=== PATIENT | male | born 1955 | race Caucasian/White ===

== ENCOUNTER 2023-12-12 10:20 | Emergency (ER) | payer MEDICARE, BC, SELFPAY ==
[2023-12-12] VITALS (33 sets, daily range): BP systolic 104–150; BP diastolic 64–107; BMI 27.0
--- NOTE | 2023-12-12 10:25 | ED.GENMED ---
History of Present Illness
General
Chief Complaint: Heart Rate Problem
Source: patient
Exam Limitations: none
Time Seen by Provider: 12/12/23 10:25
Nursing documentation reviewed up to this point in time: agreed with
History of Present Illness
History of Present Illness:
68-year-old male with history of HTN, HLD
Past History
Past History
ED Past Medical History: HTN and Hypercholesterolemia
ED Past Surgical History: None
Social History
Tobacco: Non-smoker
Alcohol: None
Drug: None
Living: with family
ED Attending Note
-
Portions of this chart may have been created with voice recognition software.� Occasional wrong word or��sound alike� substitutions may have occurred due to the inherent limitations of voice recognition software.
Discharge Plan
Departure
Prescriptions:
No Action
diclofenac sodium 75 MG tablet,delayed release (DR/EC)
75 mg PO BID PRN (Reason: pain, take with food) Qty: 30 0RF
gabapentin 300 MG capsule
300 mg PO BID Qty: 30 0RF
Discharge Date and Time
Print Language: UKRAINIAN
[2023-12-12] MEDS: NSS 1000 IV (10:44)
[2023-12-12] MEDS: CARDIZEM 10 MG IV (10:49)
[2023-12-12] MEDS: CARDIZEM 125 IV (10:49)
[2023-12-12 10:54] LABS: % Basophils 0.5 % (0-2); % Eosinophils 1.4 % (0-6); % Immature Granulocytes 0.2 % (0-0.5); % Lymphocytes 27.3 % (20.5-51.1); % Monocytes 7.4 % (1.7-9.3); % Neutrophils 63.2 % (42.2-75.2); Absolute Eosinophils 0.1 10^3/uL (0-0.7); Absolute Lymphocytes 2.3 10^3/uL (1.2-3.4); Absolute Monocytes 0.6 10^3/uL (0.1-0.6); Absolute Neutrophils 5.4 10^3/uL (1.4-6.5); Hemoglobin 17.4 g/dL (13.0-18.0); Mean Corp Hgb Conc. 35.5 g/dL (33.0-37.0); Mean Corpuscular Hgb 28.6 pg (27.0-31.0); Mean Corpuscular Volume 80.5 fL (80.0-94.0); Mean Platelet Volume 10.5 fL (7.4-10.4); Nucleated Red Blood Cells % 0 % (-); Platelet Count 213 10^3/uL (130-400); Red Blood Cell Count 6.09 10^6/uL (4.70-6.10); Red Cell Dist. Width 12.9 % (11.5-14.5); White Blood Cell Count 8.5 10^3/uL (4.8-10.8)
--- NOTE | 2023-12-12 11:15 | ED.GENMED ---
History of Present Illness
General
Chief Complaint: Heart Rate Problem
Source: patient
Exam Limitations: none
Time Seen by Provider: 12/12/23 10:25
Nursing documentation reviewed up to this point in time: agreed with
Travel History
Have you had any contact with someone who has COVID-19?: No
Do you have any symptoms of coronavirus? Fever > 100 degrees, chills, cough, shortness of breath, sore throat, loss of taste or smell, muscle aches, or headache?: No
History of Present Illness
History of Present Illness:
68-year-old male with a past medical history of hypertension, hyperlipidemia, PVCs and PACs who presents to the emergency department from outpatient surgery center where he was scheduled for a colonoscopy�was found to be in A-fib with RVR. Patient
reports that he did his colonoscopy prep and was scheduled for routine colonoscopy this morning and when they were preparing for the procedure he was noted to have heart rate in the 160s and EKG showed new onset of A-fib with RVR. Patient has a
history of PACs and PVCs and has seen cardiology (Dr. Greg Funk) for this issue but has never had A-fib. He does not take blood thinners for any reason. Fortunately he has no significant symptoms�denies palpitations, dizziness, chest pain,
shortness of breath. Unclear exactly when this started.
Past History
Past History
ED Past Medical History: HTN and Hypercholesterolemia
ED Past Surgical History: None
Social History
Tobacco: Non-smoker
Alcohol: None
Drug: None
Living: with family
Review of Systems
Review of Systems
All Other Systems: ROS reviewed and negative except as documented in HPI and ROS
Constitutional: Denies fever
Respiratory: Denies trouble breathing
Cardiac: Denies chest pain, diaphoresis, palpitations or syncope
ABD/GI: Denies abdominal pain, nausea or vomiting
: Denies flank pain
Musculoskeletal: Denies neck pain or back pain
Neurological: Denies dizzy or headache
Phy Exam
Physical Exam
Physical Exam:
General: Awake, alert, oriented x3; somewhat anxious but no acute distress
Head: Normocephalic, atraumatic
Eyes: Conjunctiva normal
Throat: Airway intact, handling secretions
Neck: Trachea midline, supple without meningismus
Lungs: Clear to auscultation bilaterally, no wheezing, rales, rhonchi
Heart: Tachycardia with irregularly irregular rhythm, no murmurs, gallops, or rubs
Abd: Soft, non distended, nontender
Neuro: Cranial nerves grossly intact, speech fluid
Skin: no rash
Extremities: No edema in extremities, equal pulses in all extremities
Scores
[id number] Score for Afib Stroke Risk
Age in Years (65=0, 65-74=1, >/=75=2): 65-74
Sex (Female=+1): Male
Congestive Heart Failure History (Yes=+1): No
Hypertension History (Yes=+1): Yes
Stroke/TIA/Thromboembolism History (Yes=+2): No
Vascular Disease History (Yes=+1): No
Diabetes Mellitus (Yes=+1): No
Score: 2
Anticoagulation Recommendations: Recommend anticoagulation (as validated in nonvalvular fib)
Heart Failure Risk
Heart Failure Risk Score: Not Applicable
Heart Score for Chest Pain Patients
STEMI patient?: Not applicable
Withdrawal Assessment of Alcohol
Withdrawal Assessment Completed?: Not applicable
Course
Orders/Labs/Results
Orders:
Orders
12/12/23 10:36
Electrocardiogram (*1) Urgent
Reason for Study: Bradycardia / Tachycardia
EKG- Treatment ONCE
12/12/23 10:37
0.9% Sodium Chloride 1000 ml [Nss] 1,000 ml IV BOLUS
Diltiazem 125 mg/125 ml Nss [Cardizem] 125 mg in 125 ml IV NOW
Initial dose in mg/hr, then titrate:: 5
Titrate to keep:: Heart rate 80-100 bpm
Titrate by mg/hr:: 5 mg/hr
Frequency of titrations (minutes):: 15
Maximum dose in mg/hr:: 15
Diltiazem HCl [Cardizem] 10 mg IV NOW STA
12/12/23 10:46
Basic Metabolic Panel Urgent
Complete Blood Count/With Diff Urgent
12/12/23 10:58
CARDIOLOGY CONSULT Urgent
Consulting Provider: Kendall Carlton
Was physician already notified: Yes
12/12/23 11:30
Comprehensive Metabolic Panel Urgent
Magnesium Urgent
Abnormal Lab Results
12/12/23
10:46
MPV 10.5 H fL
(7.4-10.4)
Glucose 110 H mg/dl
(70-99)
12/12/23 10:46
Vital Signs
Initial and Last Documented VS:
Initial Vital Signs
Pulse Resp BP Pulse Ox
160 16 138/107 98
12/12/23 10:27 12/12/23 10:27 12/12/23 10:27 12/12/23 10:27
Last Documented Vital Signs
Temp Pulse Resp BP Pulse Ox
37.0 C 98 17 134/83 100
12/12/23 10:45 12/12/23 11:15 12/12/23 11:15 12/12/23 11:15 12/12/23 11:15
MDM/Problems Addressed
Differential Diagnosis Includes:
New onset A-fib
MDM/Problems Addressed:
68-year-old male presents to the emergency room from outpatient surgery [facility] scheduled for colonoscopy and found to be in A-fib with RVR prior to procedure. Arrives to us with pulse in the 160s to 170s, EKG confirms A-fib with RVR. Mildly
hypertensive. Vital signs otherwise normal. He has no symptoms. He is not on blood thinners for any reason and given unclear onset/chronicity of A-fib would not be a good candidate for ED cardioversion. Will provide IV fluids. Send labs
including a CBC and a CMP, magnesium level. Will rate control with diltiazem. Discussed with cardiology for consultation.
Heart rate improved only slightly with diltiazem bolus and IV fluids, will start on diltiazem drip.
Heart rate currently in the 90-110 range on diltiazem infusion. Reviewed lab work CBC and CMP are unremarkable. Discussed case with hospitalist for admission.
*Pulse Oximetry
Patient hypoxic: no
*EKG
Interpreted by ED Provider?: Yes
Heart Rate: 102
Rate: tachycardiac
Rhythm: a-fib and PVC's
[place]: normal axis
Interval: normal interval
QRS Pattern: normal QRS
Ischemia: no ischemia
*Critical Care Note
Total Time (30-74mins, 75-104mins- exclusive of procedures): 30
comment:
Critical care statement: A total of 30 minutes of critical care time was provided for this patient. This includes management of unstable vital signs, evaluation of the patient at bedside, frequent reassessment, discussion with
consultants/hospitalist, and review of pertinent medical records. This time was separate from time utilized to perform any aforementioned documented procedures
Data Reviewed
Source: patient, records and spouse
Patient Management
Discussion with other providers: Hospitalist (Discussed with hospitalist) and [employer] (Discussed with cardiology)
Escalation/DeEscalation of care consider admission/obs:
Admission indicated
ED Attending Note
-
Portions of this chart may have been created with voice recognition software.� Occasional wrong word or��sound alike� substitutions may have occurred due to the inherent limitations of voice recognition software.
Discharge Plan
Departure
Patient Disposition: Admit
Date of Disposition: 12/12/23
Time of Disposition: 11:48
Admit to doctor: eNll
Presentation/result/management discussed w/ accepting MD/DO: Hospitalist
Discharge Problem:
Atrial fibrillation with RVR
Prescriptions:
No Action
diclofenac sodium 75 MG tablet,delayed release (DR/EC)
75 mg PO BID PRN (Reason: pain, take with food) Qty: 30 0RF
gabapentin 300 MG capsule
300 mg PO BID Qty: 30 0RF
Interventions
Interventions:
*Risk Screen - Suicide Last Done: 12/12/23 10:45
*General Assessment Last Done: 12/12/23 10:45
*Neglect/Abuse Screening Last Done: 12/12/23 10:45
ED- Fall Risk Assessment Last Done: 12/12/23 10:45
*ED COVID-19 Vaccine History Last Done: 12/12/23 10:45
ED- Cardiac Assessment Last Done: 12/12/23 10:45
ED- Pulmonary Assessment Last Done: 12/12/23 10:45
Discharge Date and Time
Print Language: ST HEL[place]
[2023-12-12 11:31] LABS: Blood Urea Nitrogen 15 mg/dl (9-20); Calcium 9.4 mg/dl (8.4-10.2); Carbon Dioxide 23 mmol/L (22-30); Chloride 103 mmol/L (98-107); Estimated Creatinine Clearance 84 ml/min; Glucose 110 mg/dl (70-99); Sodium 135 mmol/L (135-145); eGFR > 60.00
[2023-12-12 12:12] LABS: ALT (SGPT) 29 U/L (0-50); AST (SGOT) 32 U/L (17-59); Albumin 4.1 g/dl (3.5-5.0); Alkaline Phosphatase 44 U/L (38-126); Blood Urea Nitrogen 14 mg/dl (9-20); Calcium 8.8 mg/dl (8.4-10.2); Carbon Dioxide 23 mmol/L (22-30); Chloride 106 mmol/L (98-107); Estimated Creatinine Clearance 96 ml/min; Glucose 105 mg/dl (70-99); Magnesium 1.6 mg/dl (1.6-2.3); Potassium 3.6 mmol/L (3.5-5.1); Sodium 136 mmol/L (135-145); Total Bilirubin 1.2 mg/dl (0.2-1.3); Total Protein 6.6 g/dl (6.3-8.2); eGFR > 60.00
[2023-12-12] MEDS: ELIQUIS 5 MG PO (13:41)
[2023-12-12] MEDS: CARDIZEM 60 MG PO (13:41)
[2023-12-12] MEDS: NSS 500 IV (17:19)
[2023-12-12] MEDS: CARDIZEM CD 180 MG PO (17:19)
--- NOTE | 2023-12-12 17:52 | CON.HOSP ---
Addendum entered and electronically signed by Alfredo Huerta MD 12/13/23 00:09:
Attending Addendum-
I performed a history and physical exam of the patient and discussed his management with the resident. I reviewed the resident's note and agree with the documented findings and plan of care Patient sent to ED prior to routine colonoscopy due to a
fib with RVR. Patient was never symptomatic, denies CP SOB syncope dizziness. Seen with present. Has h/o PACs. Follow by cardiology as OP. No complaints. wants to go home. Full 12 point ROS reviewed and negative except as documented Exam: GEN
NAD heart irreg irreg tachy lungs clear abd soft LE no edema Plan:
# Afibrillation with RVR- new- started on Cardizem gtt in ED, convert to PO and monitor give IVF and bolus as dehydrated. start eliquis 5mg PO BID, first dose given in ED. tolerated well. d/w cards ok for dc home with close follow up. scripts given
for eliquis and cardizem 180PO daily. counselled re risks of bleeding and cva risk CHADSVASC2 score of 2-mod high risk AC indicated 2.2% risk CVA/yr explained in detail to and patient. patient understands and agreeable. DC ASA
# HTN- cont meds
# HLD- cont meds
Dispo- DC home with close follow up
Time spent coordinating care, subsequent follow up after initiation of treatment, review of plan of care with resident, review of records, med rec, consults, notes, labs, rads, d/w nursing, cards, ED- 110 minutes
Original Note:
Consultation
-
Date/Time Consultation Requested: 12:00
Date/Time Consultation Performed: 12:00
Family Physician
-
Family Physician: Juana Woodard
Chief Complaint
-
Atrial fibrillation
History of Present Illness
68 yr old male with hx of hypertension, hyperlipidemia, PVCs and PACs, presents to ED from the surgery center where he was to have a routine screening colonoscopy, and was noted to be in afib with RVR while he was being prepped for the procedure.
HR was noted to be in the 160s and EKG showed Afib with RVR. He has no known history of Afib and was routinely followed by his communication spec Dr. Greg Funk for long history of PACs and PVCs. He reports no symptoms at rest or with exertion. No
palpitations, dizziness, chest pain, or SOB. He plays pickleball multiple times a week to stay active and has never had symptoms.
Medical History
Past Medical History
Past Medical History: Reports Arrhythmia (PACs, PVCs), HTN and Hypercholesterolemia
Past Surgical History: Reports None
Social History
Tobacco: Non-smoker
Alcohol: Occasional
Drug: None
Personal:
Living: With Family
Family History
Family History: CAD (GA in father in early 50s)
Allergies / Home Medications
Allergies reflects when Allergies were last updated in [employer].
Home Medications with original date entered in [employer]
Allergy/Medication List:
No known allergies
Review of Systems
-
History Source: Patient
Constitutional: Reports No Symptoms
Respiratory: Denies Cough or Trouble Breathing
Cardiac: Denies Chest Pain, Diaphoresis, Palpitations or Syncope
: Denies Dysuria or Difficulty Voiding
Musculoskeletal: Denies Edema
Neurological: Denies Dizzy or Headache
Psych: Reports Calm
Physical Exam
Vital Signs
Vital Signs
Temp Pulse Resp BP Pulse Ox
98.6 F 115 21 142/83 98
12/12/23 10:45 12/12/23 17:16 12/12/23 17:16 12/12/23 17:16 12/12/23 16:00
Physical Exam
General: Well Nourished, No Apparent Distress and Comfortable
HEENT: Normocephalic and Moist Mucous Membranes
Respiratory: Clear and Non Labored Respirations; Negative Wheezes, Rales, Rhonchi or Accessory Resp Muscle Use
Cardiac: S1/S2, Irregular Rhythm and Tachycardia; Negative Murmur, Rub, Peripheral Edema, Calf Tenderness or JVD
Genito-urinary: No Costovertebral Tend; Negative Bloody Urine
Musculoskeletal: No Clubbing, No Cyanosis and No Edema
Skin: Warm and Dry; Negative Rash or Jaundice
Neuro: Awake, Alert, Oriented and Nonfocal/Grossly Intact
Psych: Calm
Laboratory Results
-
Laboratory Results
12/12/23 10:46
12/12/23 11:47
Total Bilirubin 1.2 mg/dl (0.2-1.3) 12/12/23 11:47
AST 32 U/L (17-59) 12/12/23 11:47
ALT 29 U/L (0-50) 12/12/23 11:47
Alkaline Phosphatase 44 U/L (38-126) 12/12/23 11:47
Impression / Plan
-
IMPRESSION: 68 year old male with hx of HTN, hypercholesterolemia, PVCs and PACs, presents with new onset asymptomatic atrial fibrillation.
New onset A-fib with RVR:
Asymptomatic. Underlying afib likely precipitated by dehydration from bowel prep for routine colonoscopy
Cardizem drip given in ED. Trial of short acting Diltiazem 60mg IV with HR in 90s and 100s at rest, and up to 140s standing.
- Cardiology consulted
- Diltiazem 180mg PO daily started in ED
- Cardiology outpatient follow up
- Okay to discharge
Hypovolemia:
2/2 rigorous bowel prep for routine colonoscopy procedure
-IV fluids
Code status: Full code
== END 2023-12-12 18:55 | disposition home or self-care (01) ==
LOC: EMR 10:20
PROVIDERS: EMERGENCY PHYSICIAN Emergency Medicine; FAMILY PHYSICIAN Internal Medicine; OTHER PHYSICIAN Family Medicine
DX: I48.91 Unspecified atrial fibrillation (principal); I10 Essential (primary) hypertension; E78.00 Pure hypercholesterolemia, unspecified; I49.3 Ventricular premature depolarization
CPT/HCPCS: 99291; 96374; 96361 ×2; 80048; 80053; 83735; 85025; 93005

== ENCOUNTER → 2024-01-09 09:00 | Outpatient (REF) | payer MEDICARE, BC, SELFPAY ==
[2024-01-09 12:22] LABS: TSH 2.33 uIU/ml (0.47-4.68)
== END ==
LOC: HWLAB 09:00
PROVIDERS: ATTENDING PHYSICIAN Internal Medicine Cardiovascular Disease; FAMILY PHYSICIAN Internal Medicine
DX: I48.91 Unspecified atrial fibrillation (principal)
CPT/HCPCS: 36415; 84443

== ENCOUNTER 2024-02-13 06:00 | Day surgery (SDC) | payer MEDICARE, BC, SELFPAY ==
[2024-01-24 11:07] VITALS: BMI 29.2
--- NOTE | 2024-01-24 13:00 | HPS.HSE ---
Family Physician
-
Family Physician: NO INTERVIEW UNKNOWN
Chief Complaint
-
Persistent atrial fibrillation.
History of Present Illness
The patient is a 68 year old male presenting today for persistent atrial fibrillation. The patient reports a history of exertional fatigue and a 'racing, fluttering' heart beat associated with his arrhythmia. He previously underwent 3
cardioversions for this diagnosis. He in on current pharmacological therapy with Diltiazem and Propafenone. He is compliant with Eliquis for oral anticoagulation. He notes that his symptoms associated with his arrhythmia are greatly interfering with
his activities of daily living and are overall impacting his quality of life. He is interested in pursuing pulmonary vein isolation for further arrhythmia management. He denies any current complaints today such as chest pain, shortness of breath,
nausea, vomiting, diarrhea, lightheadedness, dizziness, cough, sore throat, or fever.
Medical History
Past Medical History
Past Medical History: Reports Other
Additional Past Medical History:
1. Persistent atrial fibrillation, status post cardioversion x3; pharmacological therapy with Diltiazem and Propafenone, oral anticoagulation with Eliquis.
2. Hypertension.
3. Hyperlipidemia.
4. PACs/PVCs.
5. Mild-moderate aortic stenosis.
6. Mild-moderate aortic insufficiency.
7. Suspected TIAs, 2007 and 2012, without residual deficits.
8. Colon polyps.
9. Hemorrhoids with previous rectal bleed.
10. Osteoarthritis.
11. Shingles with post-herpatic neuralgia 2020.
12. Prediabetes.
13. Depression.
Past Surgical History: Reports Other
Additional Past Surgical History:
1. Cardioversion x3.
2. Dental implant.
3. Colonoscopy x4.
Social History
Tobacco: Non-smoker
Alcohol: Other (Social)
Personal:
Living: Other (He lives with his in a 2 story home. )
Family History
Family History: Not pertinent
Allergies / Home Medications
Allergy/Medication List:
Home medications:
1. Eliquis 5 mg p.o. twice a day.
2. Diltiazem HCl 180 mg p.o. every evening.
3. Lisinopril-Hydrochlorothiazide 20-12.5 mg p.o. daily.
4. Propafenone 425 mg p.o. every 12 hours.
5. Rosuvastatin 20 mg p.o. every evening.
Allergies: No known allergies.
Review of Systems
-
A 12 point ROS was completed and negative except as noted: Yes
Physical Exam
Vital Signs
Blood pressure 167/105. Repeat blood pressure 144/83. Heart rate 86. Respirations 18. Pulse ox 98% on room air.
Height 5 feet, 5 inches. Weight 79.5 kg. BMI 29.2.
Physical Exam
General: Well Developed, Well Nourished and No Apparent Distress
HEENT: NormoCephalic, Moist mucous membranes, Atraumatic and PERRLA
Respiratory: Clear
Cardiac: Irregular Rhythm
GI: Soft, Non Tender and Non Distended
Musculoskeletal: No Edema and Normal Gait & Station
Skin: Warm and Dry
Neuro: AO x 3 and No Motor Deficits
Laboratory Results
-
DIAGNOSTIC STUDIES as of 01/24/2024: White blood cell count 6.9. Hemoglobin 15.7. Platelet count 225,000. PT 16.1. INR 1.28. Sodium 137. Potassium 3.9. BUN 17. Creatinine 0.8. Glucose 123. Calcium 9.5. Magnesium 1.9. AST 25. ALT 34. Albumin 4.5.
Type and screen A positive.
EKG 01/24/2024: Atrial fibrillation. Nonspecific intra-ventricular conduction delay. Nonspecific ST abnormality.
Chest CT 01/24/2024: Short segment common vestibule for the left superior and inferior pulmonary veins, fairly commonly seen and considered normal variant. No evidence for left atrial thrombus.
Echocardiogram 08/03/2023: Normal chamber sizes. Mild to moderate aortic stenosis/mild insufficiency. Normal left and right ventricular systolic function. Normal diastolic function.
Impression/Plan
-
IMPRESSION/PLAN:
1. Persistent atrial fibrillation: The patient is in need pulmonary vein isolation with Dr. Justin Peterson on 02/13/2024. The benefits and risks of the procedure have been explained to the patient. The patient understands these risks and wishes to
proceed. He will not be required to undergo a pre-procedural transesophageal echocardiogram as he has been compliant with his home oral anticoagulation. He is aware to continue his Eliquis up until the night prior to his procedure. He will hold his
Propafenone 48 hours prior.
[2024-02-13] VITALS (15 sets, daily range): BP systolic 90–154; BP diastolic 48–102
[2024-02-13 08:21] LABS: ACT-LR - POC 329 Seconds (116-155)
[2024-02-13 08:38] LABS: ACT-LR - POC 316 Seconds (116-155)
--- NOTE | 2024-02-13 09:18 | ITS.CL.ABL ---
Game [employer]ator - Ablation
Ablation
Procedure Report:
ELECTROPHYSIOLOGY ABLATION STUDY
DATE:: February 13, 2024 REFERRING: Dr. Greg Garcia
INDICATION: Persistent supraventricular tachycardia in the form of atrial fibrillation.
HISTORY: See H and P. 68-year-old male with history of persistent atrial arrhythmia diagnosis atrial fibrillation without history of alternative mechanism
ANTIARRHYTHMIC DRUG: Diltiazem
PRE-PROCEDURE JULIO CESAR: No atrial thrombus on intracardiac ultrasound
PRESENTING RHYTHM: Atrial fibrillation
'TIME-OUT': called and confirmed.
SEDATION/ANESTHESIA: provided via the anesthesia department using general anesthesia (LMA).
INTRAVENOUS/ARTERIAL ACCESS:
Right femoral venous - 8Fr
Left femoral venous - 8 Fr, 6 Fr
Ultrasound guidance for bilateral femoral vein access was utilized by me to obtain access with demonstration of normal anatomy
CHADS-VASC Score:
[id number] suture was placed to the bilateral groins with adequate hemostasis
HAS-Bled Score
PROCEDURE:
1. A decapolar CS catheter was placed within the CS for mapping and pacing. This was also used as the reference catheter for the 3-D map. During ablation of the pulmonary veins and left atrial posterior wall the patient did organized into atrial
flutter with distal to proximal CS activation to 10 to 20 ms slight instability in cycle length which entrained focally from the mitral isthmus towards the ligament of Timoteo. This was cardioverted as the patient has not seen this clinically. EP
study post PVI and left atrial posterior wall isolation with burst pacing and atrial extrastimuli-like demonstrated noninducibility for this or other tachyarrhythmia. Of note the patient is on propafenone therapy.
2. The intracardiac ultrasound catheter was positioned in the RA to identify the FO for targeting of transseptal puncture, assist in identification of the pulmonary vein ostia, monitoring pre and post ablation pulmonary vein flow velocities,
monitoring for 'bubble' formation during RF application as a sign of thermal injury, and to monitor for pericardial effusion during mapping and ablation procedure. Left atrial size, LV ejection fraction, and pulmonary vein flows were monitored
pre and post ablation procedure. The other valves were inspected and found to be free of significant regurgitation or stenosis.
3. Half of the calculated heparin bolus was administered prior to the first transeptal puncture. Transseptal puncture was performed to diagnose RA and LA pressure so that safety of LA mapping and ablation could be further assessed, and to access
the left atrium and pulmonary veins for mapping and ablation. This entailed advancing an 10 [place] Contour sheath with dilator and needle apparatus into the superior vena cava and withdrawing both (monitoring intracardiac ultrasound, fluoroscopy
and tip pressure) with the tip oriented toward the atrial septum. The fossa ovalis was engaged (indicated by sudden displacement of the sheath tip as well as tenting of the fossa seen on intracardiac ultrasound). Left atrial access required a pass
with the [place] needle extended. Left atrial catheter position was confirmed by pressure monitoring (RA mean pressure 8 mm Hg and LA mean presure 14 mm Hg), LA saturation (99%), as well as fluoroscopy. The sheath was advanced over the
dilator and positioned in the left atrium. The remainder of the calculated heparin bolus was administered and heparin was
infused to maintain ACT at 300 -350 seconds throughout the case.
4. RA pacing was performed via the proximal decapolar poles and LA pacing was performed via the distal decapolar poles.
5. A quadrapolar catheter was first positioned at the His position for His Bundle recording which was tagged via the 3-D Navex sytem, and then passed to the RVA for RV pacing and recording.
6. The ablation catheter was positioned through one of the transeptal seaths and a 20 pole ring mapping catheter was positioned through the second seath into the LA and then the ostia of the LIPV, LSPV, RSPV and the RIPV.
7. Next, a 3-D map was created using Navex. A 3-D reconstructed CT image was compared to the 3-D Navex map to assist in anatomic interpretation, mapping and ablation. The CT image and the NavX image were fused.
8. A total of 111 lesions were given for this procedure. Originally 90 lesions were given at first pass with entrance block in all 4 pulm veins and the left atrial posterior wall. During posterior wall ablation the patient organized as above in
the mitral flutter which was cardioverted. We then brought the multipolar grid catheter to the left atrium in sinus rhythm demonstrating entrance and exit block in the left superior pulmonary vein, right superior pulmonary vein, right inferior
pulmonary vein, and the left atrial posterior wall. There is connection at the inferior and anterior regions of the left inferior pulmonary vein which was addressed with additional lesions along the ligament of Timoteo and inferior region of the
left inferior pulmonary vein. Multipolar grid remapped demonstrated entrance and exit block in the left inferior pulmonary vein durably.
9. Normal sinus node and AV flip function noted.
TOTAL FLOURO TIME: 15.7 minutes 123 mGy
TOTAL RF DURATION: 0 minutes
REVERSAL OF HEPARIN: 35 mg of protamine, slow IV administration
COMPLICATIONS:
None
Intracardiac US shows no pericardial effusion post ablation.
SUMMARY:
Complex left atrial mapping and ablation.
Isolation of all 4 pulmonary veins in the left atrial posterior wall as above with entrance and exit block confirmed in all of those structures.
RECOMMENDATIONS:
1. Admit to monitored bed.
2. Resume anticoagulation
3. Out of bed in 4 hours and consider same-day discharge
4. Discontinue propafenone and continue diltiazem at discharge
Copy to: Dr. Greg Garcia
--- NOTE | 2024-02-13 14:00 | W.PN.UPDATE ---
Update Note
Progress Note Update
Pt seen post PFA. Bilat groin sites stable, no ht/bleeding. OOB ambulating, urinating without difficulty. Post EKG NSR 60s, no acute changes. Resume eliquis today, continue other meds as before. Followup with Dr. Garcia as scheduled. Home today if
groin sites/tele remain stable.
== END 2024-02-13 14:15 | disposition home or self-care (01) ==
LOC: CATH 06:00
PROVIDERS: ATTENDING PHYSICIAN Internal Medicine Cardiovascular Disease; FAMILY PHYSICIAN Internal Medicine; OTHER PHYSICIAN Internal Medicine Cardiovascular Disease
DX: I48.19 Other persistent atrial fibrillation (principal); I10 Essential (primary) hypertension; E78.5 Hyperlipidemia, unspecified; Z87.19 Personal history of other diseases of the digestive system; M19.90 Unspecified osteoarthritis, unspecified site; R73.03 Prediabetes; F32.A Depression, unspecified; Z79.899 Other long term (current) drug therapy; Z79.01 Long term (current) use of anticoagulants
CPT/HCPCS: C1732; C1894; C1730; C1733; C1769; C1892; C1759; 76937; 85347; 86900; 86901; 93005; 93656

== ENCOUNTER → 2024-04-03 12:00 | Outpatient (REF) | payer MEDICARE, BC, SELFPAY | LOC: DHSLP 12:00 | PROVIDERS: ATTENDING PHYSICIAN Internal Medicine Cardiovascular Disease; FAMILY PHYSICIAN Internal Medicine | DX: G47.33 Obstructive sleep apnea (adult) (pediatric) (principal) | CPT/HCPCS: 95800 ==

== ENCOUNTER → 2025-01-14 13:11 | Outpatient (REF) | payer MEDICARE, BC, SELFPAY ==
[2025-01-14 16:56] LABS: Urine Albumin Negative (Neg - Trace); Urine Bilirubin Negative (Negative); Urine Character Clear (Clear); Urine Color Yellow; Urine Glucose Negative (Negative); Urine Ketone Negative (Negative); Urine Leukocyte Negative (Negative); Urine Nitrite Negative (Negative); Urine Occult Blood Negative (Negative); Urine Specific Gravity 1.005 (<1.030); Urine Urobilinogen Negative (Neg - 1+)
[2025-01-14 17:46] LABS: ALT (SGPT) 22 U/L (0-50); AST (SGOT) 22 U/L (17-59); Albumin 4.8 g/dl (3.5-5.0); Alkaline Phosphatase 47 U/L (38-126); Blood Urea Nitrogen 16 mg/dl (9-20); Calcium 9.3 mg/dl (8.4-10.2); Carbon Dioxide 28 mmol/L (22-30); Chloride 105 mmol/L (98-107); Direct Bilirubin 0.2 mg/dl (0.0-0.4); Glucose 90 mg/dl (70-99); HDL Cholesterol 53 mg/dl; LDL Cholesterol, Calculated 58 mg/dl; Potassium 4.3 mmol/L (3.5-5.1); Sodium 140 mmol/L (135-145); Total Cholesterol 133 mg/dl (50-199); Total Protein 7.7 g/dl (6.3-8.2); Triglyceride 110 mg/dl (10-149); Very Low Density Lipoprotein 22 mg/dl (0-30); eGFR > 60.00
[2025-01-14 17:53] LABS: CRP, Ultra Sensitive 6.47 mg/L (0.30-5.00)
[2025-01-14 18:13] LABS: PSA, Total - Screen 0.89 ng/ml (0.0-4.0); TSH 1.78 uIU/ml (0.47-4.68)
[2025-01-17 02:41] LABS: Apolipoprotein B 56 mg/dL (66-133)
[2025-01-17 02:51] LABS: Lipoprotein a (Lp a) 29 mg/dL (<=29)
== END ==
LOC: HWLAB 13:11
PROVIDERS: ATTENDING PHYSICIAN Internal Medicine Cardiovascular Disease; FAMILY PHYSICIAN Internal Medicine
DX: I10 Essential (primary) hypertension (principal); R53.83 Other fatigue; E78.5 Hyperlipidemia, unspecified; I25.9 Chronic ischemic heart disease, unspecified; E11.9 Type 2 diabetes mellitus without complications; R73.03 Prediabetes; Z12.5 Encounter for screening for malignant neoplasm of prostate; I48.19 Other persistent atrial fibrillation
CPT/HCPCS: 36415; 80053; 80061; 81003; 82172; 82248; 83036; 83695; 84443; 86141; G0103